=== PATIENT | female | born 1985 | race Asian ===

== ENCOUNTER 2018-02-02 18:05 | Inpatient (IN) | payer OTHER ==
[2018-02-02] MEDS ORDERED: Lactated Ringers 1000 ML Bag* 1,000 ML IV ONE (18:34)
[2018-02-02] MEDS ORDERED: Dinoprostone* 10 MG VAG.SUPP VAGINAL ONE (18:34)
[2018-02-02] MEDS ORDERED: Nalbuphine* 10 MG/ML 1 ML VIAL IV ONE (18:34)
[2018-02-02] MEDS ORDERED: Promethazine INJ(RESTRICTED)* 25 MG/ML 1 ML VIAL IV ONE (18:34)
--- NOTE | 2018-02-02 18:41 | HP ---
General Information - Reason for Visit postdates, cervical ripening then induction of labor - General Information Maternal Age: 33 Grav: 1 Para: 0 SAB: 0 IEA: 0 Estimated Due Date: 01/26/18 Determined By: LMP Gestational Age in Weeks/Days: 41 Maternal Blood Type and Rh: O Positive - Results this Serology/RPR Result: Non-Reactive Rubella Result: Immune HBsAg Result: Negative HIV Result: Negative GBS Culture Result: Negative Past Medical History Pertinent Past Medical History: See Records - cervical conization Pertinent Past Surgical History: None Pertinent Family History: See Records - DM, CVD, HTN, stroke - Antepartal Records Antepartal Records: Reviewed, Complicated by: - echogenic foci, low lying placenta Review of Systems Constitutional: Comfortable CV Complaint: No Respiratory: Shortness of Breath: No Gastrointestinal: No Nausea/Vomiting, Normal Bowel Movement Genitourinary: No Dysuria, No Bleeding, No Leaking Fluid Musculoskeletal: No Complaint Neurological: No Headache, No Visual Changes Movement: Normal Exam T:98.6, P:81, R:20, BP:120/75, O2:99% - Measurements Height: 5 ft 5 in Weight: 145 lb 8 oz Weight in lbs: [id number] Body Mass Index (BMI): 24.2 Pre- Weight: 115 lb Weight Gained This : 30.5 lbs and 0 ozs - Exam Breast: Breast Exam Deferred CVA: No CVA Tenderness Extremities: No Edema Heart: Normal Rhythm/Heart Sounds HEENT: No Significant Findings Lungs: Clear Bilaterally Rectal: Rectal Exam Deferred Thyroid: No Thyromegaly - Abdominal Exam Abdomen Exam: Fundal Height Consistent with Dates - Ultrasound/Biophysical Profile Ultrasound Status: Not Done Targeted Exam Findings Estimated Weight: 7lbs 10oz Cervical Exam: 2cm Effacement: 80% Station: -1 Presenting Part: Vertex Membrane Status: Intact Bleeding/Discharge: Bloody Show EFM Findings - External Monitor Findings Baseline Heart Rate: 135 External Monitor Findings: Accelerations Present, No Pattern of Variable or Late Decelerations, Variability Moderate, Baseline Stable Contractions: Irregular, Mild, 45-90 Seconds Assessment/Plan - Assessment 33 y.o. , 41weeks EGA, induction of labor for postdates - Plan Plan: Cervical Ripening - Date/Time of Admission Date of Admission: 02/02/18 Time of Admission: 18:42
[2018-02-02] MEDS ORDERED: Lactated Ringers 1000 ML Bag* 1,000 ML IV SCH (19:00)
[2018-02-02 22:36] LABS: ABS Basophils 0 10^3/ul (0-0.2); ABS Eosinophils 0.1 10^3/ul (0-0.6); ABS Monocytes 0.7 10^3/ul (0-0.8); ABS Neutrophils 7.7 10^3/ul (1.5-7.7); ABS Nucleated RBC 0 10^3/ul; Eosinophil % 1.2 %; Hematocrit 37 % (35-47); Hemoglobin 12.5 g/dl (12.0-16.0); Lymphocyte % 18.9 %; Mean Corpuscular HGB Conc 34 g/dl (31-36); Mean Corpuscular Hemoglobin 31 pg (27-31); Mean Corpuscular Volume 91 fL (80-97); Mean Platelet Volume 8.2 fL (7.4-10.4); Nucleated Red Blood Cells % 0.1; Platelet Count 243 10^3/ul (150-450); Red Blood Count 4.09 10^6/ul (4.00-5.40); Red Cell Distribution Width 14 % (10.5-15); White Blood Count 10.5 10^3/ul (3.5-10.8)
[2018-02-03] MEDS ORDERED: Promethazine INJ(RESTRICTED)* 25 MG/ML 1 ML VIAL ONE (05:22)
[2018-02-03] MEDS ORDERED: Nalbuphine* 10 MG/ML 1 ML VIAL ONE (05:22)
[2018-02-03] MEDS ORDERED: OBEPIDURAL* 250 ML EPIDURAL ONE (07:41)
--- NOTE | 2018-02-03 08:14 | PN ---
Progress Note - Progress Note Date of Service: 02/03/18 SOAP: Subjective: [Pt rested overnight some becoming increasingly uncomfortable around 6AM. Pt requested epidural and is now more comfortable.] Objective: [BP: 128/88, P:83, O2: 96%, FHT: 125 bpm, + accels, -decels, moderate variability] Assessment: [33 y.o. , 41w1d, active labor] Plan: [1) Position changes 2) Anticipate vaginal delivery]
[2018-02-03] MEDS ORDERED: Famotidine TAB* 20 MG PO PRN (09:59)
[2018-02-03] MEDS ORDERED: Phenylephrine IV* 40 MCG/ML 10 ML SYRINGE IV PUSH PRN (09:59)
[2018-02-03] MEDS ORDERED: Sodium Citrate/Citric Acid* 15 ML UDC PO PRN (09:59)
[2018-02-03] MEDS ORDERED: Lactated Ringers 1000 ML Bag* 1,000 ML IV ONE (09:59)
[2018-02-03] MEDS ORDERED: OBEPIDURAL* 250 ML EPIDURAL SCH (10:00)
[2018-02-03] MEDS ORDERED: Lactated Ringers 1000 ML Bag* 1,000 ML IV SCH ×2 (10:00→14:00)
--- NOTE | 2018-02-03 12:10 | PN ---
Progress Note - Progress Note Date of Service: 02/03/18 SOAP: Subjective: [Pt reports increased pressure. ] Objective: [129/74, P:84, T:100, FHT: 135 bpm, +accels, variable decels with contraction with rapid return to baseline, and minimal variability. Cervix: 10/100/+1] Assessment: [33 y.o. , FT pushing] Plan: [1) Anticipate vaginal delivery]
[2018-02-03] MEDS ORDERED: Oxytocin in LR* 20 UNITS/1,000 ML BAG IVPB ONE (13:19)
[2018-02-03] MEDS ORDERED: Dibucaine 1% 28.35 GM TUBE ONE (13:34)
[2018-02-03] MEDS ORDERED: Witch Hazel PAD* JAR ONE (13:34)
[2018-02-03] MEDS ORDERED: Glycerin ADULT SUPP PR PRN (13:49)
[2018-02-03] MEDS ORDERED: Misoprostol TAB* 200 MCG PR ONE (13:49)
--- NOTE | 2018-02-03 13:49 | PROCNOTE ---
[facility] OB: Delivery Note - Delivery A Date of : 02/03/18 Time of : 13:15 Sex: Female Score 1 Minute: 9 Score 5 Minutes: 9 Gestational Age in Weeks and Days at Delivery: 41 Weeks and 1 Days Delivery Method: Spontaneous Vaginal Labor: Spontaneous Did Patient attempt ?: N/A, No Previous Amniotic Fluid: Clear Estimated Blood Loss: 400 Anesthesia/Analgesia: CEI for Labor Delivered By: Mary Montenegro - Nursery Level of Nursery: Regular/Bedside - Perineum Perineal Injury: Perineal Laceration, 2nd Degree Perineal Repair: By Delivering Practioner - Events Delivery Events of Note: Pitocin Only After Delivery
[2018-02-03] MEDS ORDERED: Oxytocin in LR* 20 UNITS/1,000 ML BAG IVPB SCH (14:00)
[2018-02-03] MEDS: Witch Hazel PAD* JAR TOPICAL PRN (16:45)
[2018-02-03] MEDS: Dibucaine 1% 28.35 GM TUBE PR PRN (16:45)
[2018-02-03] MEDS: Ibuprofen TAB* 600 MG PO PRN (16:45)
[2018-02-03] MEDS ORDERED: Simethicone TAB* 80 MG TAB.CHEW PO SCH (17:30)
[2018-02-03] MEDS: Docusate CAP* 100 MG PO SCH ×2 (18:41→20:36)
[2018-02-03] MEDS: Acetaminophen TAB* 325 MG PO PRN (20:36)
[2018-02-04 07:36] LABS: ABS Basophils 0.1 10^3/ul (0-0.2); ABS Eosinophils 0.1 10^3/ul (0-0.6); ABS Lymphocytes 2.3 10^3/ul (1.0-4.8); ABS Neutrophils 12.3 10^3/ul (1.5-7.7); ABS Nucleated RBC 0 10^3/ul; Eosinophil % 0.7 %; Hematocrit 32 % (35-47); Hemoglobin 10.5 g/dl (12.0-16.0); Lymphocyte % 14.7 %; Mean Corpuscular HGB Conc 33 g/dl (31-36); Mean Corpuscular Hemoglobin 30 pg (27-31); Mean Corpuscular Volume 92 fL (80-97); Mean Platelet Volume 8.1 fL (7.4-10.4); Nucleated Red Blood Cells % 0; Platelet Count 186 10^3/ul (150-450); Red Blood Count 3.49 10^6/ul (4.00-5.40); Red Cell Distribution Width 14 % (10.5-15); White Blood Count 15.8 10^3/ul (3.5-10.8)
[2018-02-04] MEDS: Docusate CAP* 100 MG PO SCH ×3 (07:47→20:01)
[2018-02-04] MEDS: Ibuprofen TAB* 600 MG PO PRN ×3 (07:47→20:49)
[2018-02-04] MEDS ORDERED: Ferrous Gluconate TAB* 324 MG TAB PO SCH (09:00)
[2018-02-04] MEDS: Acetaminophen TAB* 325 MG PO PRN (11:29)
[2018-02-04] MEDS ORDERED: Varicella Virus Vaccine Live* 0.5 ML VIAL SUBCUT ONE (13:02)
[2018-02-04] MEDS: Dibucaine 1% 28.35 GM TUBE PR PRN (15:01)
[2018-02-04] MEDS: Witch Hazel PAD* JAR TOPICAL PRN (20:01)
[2018-02-05 08:02] VITALS: BP 105/67
[2018-02-05] MEDS: Docusate CAP* 100 MG PO SCH (08:37)
[2018-02-05] MEDS: Dibucaine 1% 28.35 GM TUBE PR PRN (08:37)
[2018-02-05] MEDS: Ibuprofen TAB* 600 MG PO PRN (11:21)
== END 2018-02-05 14:35 | disposition home or self-care (01) | DRG 560 ==
LOC: MCHOBOUT 18:05 → MCHOB 02-03 02:44
PROVIDERS: ADMIT Midwife; ATTEND Midwife
PROC: 3E0P7VZ Introduction of Hormone into Female Reproductive, Via Natural or Artificial Opening (ICD-10-PCS; principal; 2018-02-03)
PROC: 10E0XZZ Delivery of Products of Conception, External Approach (ICD-10-PCS; 2018-02-03)
PROC: 4A1HXCZ Monitoring of Products of Conception, Cardiac Rate, External Approach (ICD-10-PCS; 2018-02-03)
PROC: 10907ZC Drainage of Amniotic Fluid, Therapeutic from Products of Conception, Via Natural or Artificial Opening (ICD-10-PCS; 2018-02-03)
PROC: 3E033VJ Introduction of Other Hormone into Peripheral Vein, Percutaneous Approach (ICD-10-PCS; 2018-02-03)
PROC: 0KQM0ZZ Repair Perineum Muscle, Open Approach (ICD-10-PCS; 2018-02-03)
DX: O48.0 Post-term pregnancy (principal); Z37.0 Single live birth; Z3A.41 41 weeks gestation of pregnancy; O70.1 Second degree perineal laceration during delivery; O76 Abnormality in fetal heart rate and rhythm complicating labor and delivery
CPT/HCPCS: 36415; 85025; 86850; 86900; 86901; A9270-GY; J2300; J2550